=== PATIENT | female | born 1960 | race African-American/Black ===

== ENCOUNTER 2018-02-21 17:45 | Emergency (ER) | payer OTHER ==
[~2018-02-21] VITALS: Ht 162.6 cm; Wt 85.0 kg
[2018-02-21] MEDS ORDERED: ACETAMINOPHEN 500MG TABLET PO ONE (18:45)
[2018-02-21 18:55] VITALS: BP 155/99
== END 2018-02-21 18:56 | disposition home or self-care (01) ==
LOC: ER 18:04
DX: S16.1XXA Strain of muscle, fascia and tendon at neck level, initial encounter (principal); S39.012A Strain of muscle, fascia and tendon of lower back, initial encounter; V43.52XA Car driver injured in collision with other type car in traffic accident, initial encounter; Y93.89 Activity, other specified; Y92.488 Other paved roadways as the place of occurrence of the external cause
CPT/HCPCS: 99283; Z7610